=== PATIENT | female | born 1985 | race Caucasian/White ===

== ENCOUNTER 2017-04-16 20:35 | Emergency (ER) | payer OTHER ==
[2017-04-16 20:39] VITALS: BP 119/51; PULSE 77; RESP 16; TEMP 98; O2SAT 99
--- NOTE | 2017-04-16 21:07 | ED PDOC ---
Lower Extremity Pain/Injury Time Seen by Provider: 04/16/17 20:40 Chief Complaint (Nursing): Lower Extremity Problem/Injury Chief Complaint (Provider): Foot Pain History Per: Patient History/Exam Limitations: no limitations Onset/Duration Of Symptoms: Days (x1) Current Symptoms Are (Timing): Still Present Additional Complaint(s): Nancy Guerra is a 32 year old female who was brought to the ED by EMS due to a left foot injury sustained at 09:00. Patient states she twisted her ankle running to the bus this morning. Pain worsened around 16:00 prompting ED visit. Patient took no medication for pain. PMD: Non-[facility] Provider Past Medical History Reviewed: Historical Data, Nursing Documentation, Vital Signs Vital Signs: Last Vital Signs Temp 98.0 F 04/16/17 20:37 Pulse 77 04/16/17 20:37 Resp 16 04/16/17 20:37 BP 119/51 L 04/16/17 20:37 Pulse Ox 99 04/16/17 20:37 - Family History Family History: States: Unknown Family Hx - Home Medications Home Medications: Ambulatory Orders Medication Instructions Recorded Ibuprofen [Motrin] 600 mg PO Q8 PRN #21 tab 04/16/17 - Allergies Allergies/Adverse Reactions: Allergies Allergy/AdvReac Type Severity Reaction Status Date / Time No Known Allergies Allergy Verified 04/16/17 20:36 Review of Systems ROS Statement: Except As Marked, All Systems Reviewed And Found Negative Musculoskeletal: Positive for: Foot Pain (left) Physical Exam - Reviewed Nursing Documentation Reviewed: Yes Vital Signs Reviewed: Yes - Physical Exam Appears: Positive for: Well, Non-toxic, No Acute Distress Head Exam: Positive for: ATRAUMATIC, NORMAL INSPECTION, NORMOCEPHALIC Skin: Positive for: Normal Color. Negative for: Rash Eye Exam: Positive for: Normal appearance Extremity: Positive for: Tenderness (Left lateral foot) Neurologic/Psych: Positive for: Alert, Oriented - ECG O2 Sat by Pulse Oximetry: 99 (RA) Pulse Ox Interpretation: Normal - Progress ED Course And Treament: xry of foot: no acute fx noted tylenol 975mg x 1 dose crutch instructions given hard shoe given. Medical Decision Making Medical Decision Making: Time: 20:50 Initial Impression: Left foot injury Plan: --Tylenol 975 mg PO --X-Ray Foot Left 3 Views --Reevaluation Scribe Attestation: Documented by Galo Perry, acting as a scribe for Vicente Blackwell PA-C Provider Scribe Attestation: All medical record entries made by the Scribe were at my direction and personally dictated by me. I have reviewed the chart and agree that the record accurately reflects my personal performance of the history, physical exam, medical decision making, and the department course for this patient. I have also personally directed, reviewed, and agree with the discharge instructions and disposition. Disposition - Clinical Impression Clinical Impression: Foot sprain - Patient ED Disposition Is Patient to be Admitted: No - Disposition Referrals: Podiatry Clinic [Outside] Disposition: Routine/Home Disposition Time: 21:35 Condition: FAIR Prescriptions: Ibuprofen [Motrin] 600 mg PO Q8 PRN #21 tab PRN Reason: Pain, Moderate (4-7) Instructions: Foot Sprain (ED) Forms: [employer] ([place]rian), [facility] ED School/Work Excuse
--- NOTE | 2017-04-17 14:17 | RAD ---
PROCEDURE: Left Foot Radiographs. HISTORY: injury COMPARISON: None. FINDINGS: BONES: Normal. No fracture. JOINTS: Normal. SOFT TISSUES: Normal. OTHER FINDINGS: None. IMPRESSION: Normal left foot radiographs.
== END 2017-04-16 22:26 | disposition home or self-care (01) ==
LOC: H.ER 20:35
DX: S99.922A Unspecified injury of left foot, initial encounter (principal); Y92.89 Other specified places as the place of occurrence of the external cause

== ENCOUNTER 2017-04-30 21:26 | Emergency (ER) | payer OTHER ==
[2017-04-30 21:31] VITALS: BP 113/65; PULSE 72; RESP 18; TEMP 97.8; O2SAT 99
--- NOTE | 2017-04-30 21:56 | ED PDOC ---
HPI: Eye Injury/Pain Time Seen by Provider: 04/30/17 21:55 Chief Complaint (Nursing): Eye Problem Chief Complaint (Provider): eye discharge History Per: Patient Additional Complaint(s): 32 year old female presents with irritation and discharge from right eye that started yesterday. No fever or chills. Patient states her daughter was treated last week for pinkeye. Patient denies headache or foreign body sensation to right eye. Left eye is unaffected. Patient wears glasses but does not wear contact lenses. Past Medical History Reviewed: Historical Data, Nursing Documentation, Vital Signs Vital Signs: Last Vital Signs Temp 97.8 F 04/30/17 21:27 Pulse 72 04/30/17 21:27 Resp 18 04/30/17 21:27 BP 113/65 04/30/17 21:27 Pulse Ox 99 04/30/17 21:27 - Medical History PMH: No Chronic Diseases - Surgical History Surgical History: Appendectomy - Family History Family History: States: No Known Family Hx - Living Arrangements Living Arrangements: With Family - Social History Current smoker - smoking cessation education provided: No Alcohol: None Drugs: Denies - Home Medications Home Medications: Ambulatory Orders Medication Instructions Recorded Ibuprofen [Motrin] 600 mg PO Q8 PRN #21 tab 04/16/17 Tobramycin [Tobrex] 5 ml TOP QID #1 bottle 04/30/17 - Allergies Allergies/Adverse Reactions: Allergies Allergy/AdvReac Type Severity Reaction Status Date / Time No Known Allergies Allergy Verified 04/16/17 20:36 Review of Systems ROS Statement: Except As Marked, All Systems Reviewed And Found Negative ENT: Positive for: Other (discharge and irritation from right eye) Physical Exam - Reviewed Nursing Documentation Reviewed: Yes Vital Signs Reviewed: Yes - Physical Exam Appears: Positive for: Well, Non-toxic, No Acute Distress Skin: Negative for: Rash Eye Exam: Positive for: EOMI, PERRL, Other (Right eye demonstrates moderate diffuse conjunctival injection with yellow discharge noted, no periorbital cellulitis, left eye within normal limits). Negative for: Nystagmus Neurologic/Psych: Positive for: Alert, Oriented - ECG O2 Sat by Pulse Oximetry: 99 Pulse Ox Interpretation: Normal Medical Decision Making Medical Decision Making: Impression: Purulent conjunctivitis Patient was offered pain medication but she declined. Prescription provided for tobramycin ophthalmic. Patient was referred to [facility] on-call and advised to follow up for any persistent symptoms. Disposition - Clinical Impression Clinical Impression: Conjunctivitis - Patient ED Disposition Is Patient to be Admitted: No Counseled Patient/Family Regarding: Diagnosis, Need For Followup, Rx Given - Disposition Referrals: Allan Laguerre MD [Staff Provider] - Disposition: Routine/Home Disposition Time: 22:27 Condition: STABLE Additional Instructions: Apply drop as directed. Tylenol or advil as needed for pain Follow up with eye doctor for any persistent symptoms Prescriptions: Tobramycin [Tobrex] 5 ml TOP QID #1 bottle Instructions: Conjunctivitis (ED) Forms: [employer] (Macedonian)
== END 2017-04-30 23:18 | disposition home or self-care (01) ==
LOC: H.ER 21:26
DX: H10.9 Unspecified conjunctivitis (principal)